=== PATIENT | male | born 1980 | race Two or more races ===

== ENCOUNTER 2020-02-23 22:27 | Emergency (ER) | payer MEDICARE ==
[~2020-02-23] VITALS: Ht 180.3 cm; Wt 138.0 kg
--- NOTE | 2020-02-24 00:06 | PHYS DOC ---
Past Medical History Past Medical History: CVA, Hypertension Past Surgical History: Cholecystectomy Smoking Status: Never Smoker Alcohol Use: Occasionally General Adult EDM: Chief Complaint: DIZZY/LIGHT HEADED HPI: HPI: Patient is a 39 year old male with past medical history of cva htn hyperlipid presents for evaluation of paresthesia and dizziness. Patient states around 2200hrs he was using his phone and noticed some numbness in his right hand. He states the then got up out of bed and suddenly felt dizzy. States episode lasted 10 seconds then resolved. States for the last 3 days he has not taken any of his mediations. Patient has no complaints now. Patient does have left sided residual weakness from cva. NIH - zero Review of Systems: Review of Systems: Constitutional: Denies fever or chills. [] Eyes: Denies change in visual acuity. [] HENT: Denies nasal congestion or sore throat. [] Respiratory: Denies cough or shortness of breath. [] Cardiovascular: Denies chest pain or edema. [] GI: Denies abdominal pain, nausea, vomiting, bloody stools or diarrhea. [] : Denies dysuria. [] Musculoskeletal: Denies back pain or joint pain. [] Integument: Denies rash. [] Neurologic: Denies headache, focal weakness or sensory changes. [positive paresthesia positive dizziness] Endocrine: Denies polyuria or polydipsia. [] Lymphatic: Denies swollen glands. [] Psychiatric: Denies depression or anxiety. [] Heart Score: Risk Factors: Risk Factors: DM, Current or recent (<one month) smoker, HTN, HLP, family history of CAD, obesity. Risk Scores: Score 0 - 3: 2.5% MACE over next 6 weeks - Discharge Home Score 4 - 6: 20.3% MACE over next 6 weeks - Admit for Clinical Observation Score 7 - 10: 72.7% MACE over next 6 weeks - Early Invasive Strategies Allergies: Allergies: Allergies Coded Allergies Type Severity Reaction Last Updated Verified No Known Drug Allergies 02/23/20 No Physical Exam: PE: Constitutional: Well developed, well nourished, no acute distress, non-toxic appearance. [] HENT: Normocephalic, atraumatic, bilateral external ears normal, oropharynx moist, no oral exudates, nose normal. [] Eyes: PERRLA, EOMI, conjunctiva normal, no discharge. [] Neck: Normal range of motion, no tenderness, supple, no stridor. [] Cardiovascular:Heart rate regular rhythm, no murmur [] Lungs & Thorax: Bilateral breath sounds clear to auscultation [] Abdomen: Bowel sounds normal, soft, no tenderness, no masses, no pulsatile masses. [] Skin: Warm, dry, no erythema, no rash. [] Back: No tenderness, no CVA tenderness. [] Extremities: No tenderness, no cyanosis, no clubbing, ROM intact, no edema. [] Neurologic: Alert and oriented X 3, normal motor function, normal sensory function, no focal deficits noted. [] Psychologic: Affect normal, judgement normal, mood normal. [] Current Patient Data: Vital Signs: Vital Signs Date Time Temp Pulse Resp B/P (MAP) Pulse Ox O2 Delivery O2 Flow Rate FiO2 02/23/20 23:00 98.8 76 16 215/121 (152) 96 Room Air 98.8 EKG: EKG: [] EKG time 0003 heart rate 72 bpm sinus rhythm no ST elevation no ST depression no acute [place] Radiology/Procedures: Radiology/Procedures: [] Impression: MPRESSION: 1. Decreased density inferior right cerebellum possibly encephalomalacia from an old CVA or injury. 2. Small focus of decreased density in the left occipital lobe possibly a lacunar infarct correlation with an old study or MRI could be of benefit. 3. No intracranial hemorrhage or other acute finding. Course & Med Decision Making: Course & Med Decision Making Pertinent Labs and Imaging studies reviewed. (See chart for details) [] Patients initial blood pressure > 200 systolic. Patient treated labetolol 20mg with improvement --> 160 systolic. Discussed all labs and ct with patient. Discussed occipital lucunar findings with patient and mother. Radiologist recommends ct comparision or MRI. I discussed hospital admission for further evaluation. Patient declined admission and further work up. Bernard Disclaimer: Bernard Disclaimer: This electronic medical record was generated, in whole or in part, using a voice recognition dictation system. Departure Departure Impression: Primary Impression: Dizziness Additional Impression: Hypertension Disposition: 01 DC HOME SELF CARE/HOMELESS Condition: STABLE Referrals: NO PCP (PCP) Patient Instructions: Dizziness, Hypertension KARL COSTA I DO Feb 24, 2020 00:06
[2020-02-24 00:31] LABS: BASO # 0.1 x10^3/uL (0.0-0.2); BASO % 1 % (0-3); EOS # 0.4 x10^3/uL (0.0-0.7); EOS % 3 % (0-3); HEMATOCRIT 45.8 % (39.0-53.0); LYMPH # 3.1 x10^3/uL (1.0-4.8); LYMPH % 28 % (24-48); MEAN CORPUSCULAR HEMOGLOBIN 33 pg (25-35); MEAN CORPUSCULAR HGB CONC 35 g/dL (31-37); MEAN CORPUSCULAR VOLUME 94 fL (79-100); MONO # 1.1 x10^3/uL (0.0-1.1); MONO % 10 % (0-9); NEUT # 6.6 x10^3/uL (1.8-7.7); NEUT % 59 % (31-73); PLATELET COUNT 193 x10^3/uL (140-400); RED BLOOD COUNT 4.89 x10^6/uL (4.30-5.70); RED CELL DISTRIBUTION WIDTH 14.6 % (11.5-14.5); WHITE BLOOD COUNT 11.2 x10^3/uL (4.0-11.0)
[2020-02-24 00:44] LABS: CALCIUM 9.3 mg/dL (8.5-10.1); CREATININE 1.6 mg/dL (0.7-1.3); GFR 47.9
[2020-02-24 00:58] LABS: ALBUMIN 3.5 g/dL (3.4-5.0); ALBUMIN/GLOBULIN RATIO 0.9 (1.0-1.7); TOTAL BILIRUBIN 0.3 mg/dL (0.2-1.0); TOTAL PROTEIN 7.6 g/dL (6.4-8.2)
[2020-02-24] MEDS ORDERED: LABETALOL 20 MG/4 ML DISP.SYRIN. IVP ONE (01:00)
--- NOTE | 2020-02-24 01:04 | RAD ---
CT brain without contrast. HISTORY: Dizziness CT scan the brain was done without contrast. Sinuses are clear. There is no skull fracture. Mastoids are normally aerated. There is decreased density in the inferior cerebellum on the right possibly an old injury or old CVA. There is also focal decreased density in the occipital lobe on the left. Correlation with an old study or MRI could be of benefit but a small old lacunar infarct is possible. There is no intracranial hemorrhage or subdural hematoma. There is no shift of the midline. Lateral ventricles are normal in size. IMPRESSION: 1. Decreased density inferior right cerebellum possibly encephalomalacia from an old CVA or injury. 2. Small focus of decreased density in the left occipital lobe possibly a lacunar infarct correlation with an old study or MRI could be of benefit. 3. No intracranial hemorrhage or other acute finding. PQRS Compliance Statement: One or more of the following individualized dose reduction techniques were utilized for this examination: 1. Automated exposure control 2. Adjustment of the mA and/or kV according to patient size 3. Use of iterative reconstruction technique Electronically signed by: Darron Galindo MD (02/24/2020 1:01 AM) [id number]
[2020-02-24 03:30] VITALS: BP 153/74
--- NOTE | 2020-02-24 05:13 | EKG ---
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
== END 2020-02-24 03:43 | disposition home or self-care (01) ==
LOC: ER 22:27
DX: I10 Essential (primary) hypertension (principal); R42 Dizziness and giddiness; R20.2 Paresthesia of skin; Z86.73 Personal history of transient ischemic attack (TIA), and cerebral infarction without residual deficits; Z90.49 Acquired absence of other specified parts of digestive tract
CPT/HCPCS: 36415; 70450; 80053; 84484; 85025; 93005; 96374; 99285; J3490

== ENCOUNTER 2020-02-29 00:41 | Emergency (ER) | payer MEDICARE ==
[~2020-02-29] VITALS: Ht 177.8 cm; Wt 138.6 kg
[2020-02-29 01:26] LABS: BASO # 0.1 x10^3/uL (0.0-0.2); BASO % 1 % (0-3); EOS # 0.3 x10^3/uL (0.0-0.7); EOS % 2 % (0-3); HEMATOCRIT 47.2 % (39.0-53.0); HEMOGLOBIN 16.6 g/dL (13.0-17.5); LYMPH # 3.6 x10^3/uL (1.0-4.8); LYMPH % 26 % (24-48); MEAN CORPUSCULAR HEMOGLOBIN 33 pg (25-35); MEAN CORPUSCULAR HGB CONC 35 g/dL (31-37); MEAN CORPUSCULAR VOLUME 94 fL (79-100); MONO # 1.4 x10^3/uL (0.0-1.1); MONO % 10 % (0-9); NEUT # 8.2 x10^3/uL (1.8-7.7); NEUT % 60 % (31-73); PLATELET COUNT 207 x10^3/uL (140-400); RED BLOOD COUNT 5.03 x10^6/uL (4.30-5.70); RED CELL DISTRIBUTION WIDTH 14.8 % (11.5-14.5); WHITE BLOOD COUNT 13.6 x10^3/uL (4.0-11.0)
--- NOTE | 2020-02-29 01:28 | PHYS DOC ---
Past Medical History Past Medical History: CVA, Hypertension Past Surgical History: Cholecystectomy Smoking Status: Never Smoker Alcohol Use: Occasionally General Adult EDM: Chief Complaint: HYPERTENSION HPI: HPI: Patient is a 39 year old with a past medical history of ischemic stroke left- sided residual weakness hypertension presents with a chief complaint of high blood pressure. Patient's states he brought up new blood pressure wrist cuff 3 days ago. Patient states yesterday his blood pressure have been running high. Patient states prior to arrival his blood pressures were greater than 200 systolic. Patient also brought a cuffed arm blood pressure monitor which has also been reading high. Patient denies any associated symptoms such as headache dizziness chest pain or shortness of breath. Patient has been taking all his medications as previously prescribed. Patient's blood pressure at the time of my exam was 200 systolic. Review of Systems: Review of Systems: Constitutional: Denies fever or chills. [] Eyes: Denies change in visual acuity. [] HENT: Denies nasal congestion or sore throat. [] Respiratory: Denies cough or shortness of breath. [] Cardiovascular: Denies chest pain or edema. [] GI: Denies abdominal pain, nausea, vomiting, bloody stools or diarrhea. [] : Denies dysuria. [] Musculoskeletal: Denies back pain or joint pain. [] Integument: Denies rash. [] Neurologic: Denies headache, focal weakness or sensory changes. [] Endocrine: Denies polyuria or polydipsia. [] Lymphatic: Denies swollen glands. [] Psychiatric: Denies depression or anxiety. [] Heart Score: Risk Factors: Risk Factors: DM, Current or recent (<one month) smoker, HTN, HLP, family history of CAD, obesity. Risk Scores: Score 0 - 3: 2.5% MACE over next 6 weeks - Discharge Home Score 4 - 6: 20.3% MACE over next 6 weeks - Admit for Clinical Observation Score 7 - 10: 72.7% MACE over next 6 weeks - Early Invasive Strategies Current Medications: Current Medications Medications (Trade) Dose Ordered Sig/Dao Start Time Stop Time Status Last Admin Dose Admin Labetalol HCl (Normodyne Iv Push) 20 mg 1X ONCE 02/29/20 02:00 02/29/20 02:01 Allergies: Allergies: Allergies Coded Allergies Type Severity Reaction Last Updated Verified No Known Drug Allergies 02/23/20 No Physical Exam: PE: Constitutional: Well developed, well nourished, no acute distress, non-toxic appearance. [] HENT: Normocephalic, atraumatic, bilateral external ears normal, oropharynx moist, no oral exudates, nose normal. [] Eyes: PERRLA, EOMI, conjunctiva normal, no discharge. [] Neck: Normal range of motion, no tenderness, supple, no stridor. [] Cardiovascular:Heart rate regular rhythm, no murmur [] Lungs & Thorax: Bilateral breath sounds clear to auscultation [] Abdomen: Bowel sounds normal, soft, no tenderness, no masses, no pulsatile masses. [] Skin: Warm, dry, no erythema, no rash. [] Back: No tenderness, no CVA tenderness. [] Extremities: No tenderness, no cyanosis, no clubbing, ROM intact, no edema. [] Neurologic: Alert and oriented X 3, normal motor function, normal sensory function, no focal deficits noted. [] Psychologic: Affect normal, judgement normal, mood normal. [] EKG: EKG: time 0105 rate 78 nsr no stemi[] Radiology/Procedures: Radiology/Procedures: [] Course & Med Decision Making: Course & Med Decision Making Pertinent Labs and Imaging studies reviewed. (See chart for details) [] Patient was evaluated for chief complaint. Work-up consisted of laboratory analysis radiologic imaging and EKG. Results reviewed and discussed with the patient. Treatment included labetalol. At the time of my reexamination patient's blood pressure 130s systolic. Patient continued to decline any associated symptoms. Patient advised to continue current blood pressure medications document blood pressures daily and follow-up with his primary care physician for hypertension medication reevaluation. [place] Disclaimer: Bernard Disclaimer: This electronic medical record was generated, in whole or in part, using a voice recognition dictation system. Departure Departure Impression: Primary Impression: Hypertension Disposition: 01 DC HOME SELF CARE/HOMELESS Condition: STABLE Referrals: NO PCP (PCP) Patient Instructions: Hypertension KARL COSTA I DO Feb 29, 2020 01:28
[2020-02-29 01:37] LABS: CREATININE 1.3 mg/dL (0.7-1.3); GFR 60.8; POTASSIUM 3.7 mmol/L (3.5-5.1)
[2020-02-29 01:42] LABS: ALBUMIN 3.6 g/dL (3.4-5.0); ALBUMIN/GLOBULIN RATIO 0.9 (1.0-1.7); TOTAL BILIRUBIN 0.3 mg/dL (0.2-1.0); TOTAL PROTEIN 7.7 g/dL (6.4-8.2)
[2020-02-29] MEDS ORDERED: LABETALOL 20 MG/4 ML DISP.SYRIN. IVP ONE (02:00)
[2020-02-29 02:11] VITALS: BP 132/75
--- NOTE | 2020-02-29 17:19 | EKG ---
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
== END 2020-02-29 02:25 | disposition home or self-care (01) ==
LOC: ER 00:41
DX: I10 Essential (primary) hypertension (principal); R53.1 Weakness; Z86.73 Personal history of transient ischemic attack (TIA), and cerebral infarction without residual deficits
CPT/HCPCS: 36415; 80053; 84484; 85025; 93005; 96374; 99284; J3490